=== PATIENT | male | born 1950 | race Caucasian/White ===

== ENCOUNTER → 2017-05-31 | Outpatient (CLI) | payer MEDICARE | END | disposition home or self-care (01) | LOC: RAD 10:15 | DX: J44.1 Chronic obstructive pulmonary disease with (acute) exacerbation (principal) ==

== ENCOUNTER → 2018-04-05 | Outpatient (CLI) | payer MEDICARE ==
[~2018-04-05] MED LIST: ANTIBIOTIC28.4 GM T; CEPHALEXIN500 M1 PO
== END | disposition home or self-care (01) ==
LOC: CT 09:00
DX: J44.1 Chronic obstructive pulmonary disease with (acute) exacerbation (principal); K74.60 Unspecified cirrhosis of liver; J98.11 Atelectasis

== ENCOUNTER → 2021-12-03 | Outpatient (CLI) | payer MEDICARE | END | disposition home or self-care (01) | LOC: RAD 16:47 | PROVIDERS: ATTEND Internal Medicine | DX: R91.8 Other nonspecific abnormal finding of lung field (principal); J44.9 Chronic obstructive pulmonary disease, unspecified ==

== ENCOUNTER → 2021-12-17 | Outpatient (CLI) | payer MEDICARE | END | disposition home or self-care (01) | LOC: CT 10:24 | PROVIDERS: ATTEND Internal Medicine | DX: R91.8 Other nonspecific abnormal finding of lung field (principal); K74.60 Unspecified cirrhosis of liver; R18.8 Other ascites ==

== ENCOUNTER → 2021-12-30 | Outpatient (CLI) | payer MEDICARE | END | disposition home or self-care (01) | LOC: CT 09:40 | PROVIDERS: ATTEND Internal Medicine | DX: K80.20 Calculus of gallbladder without cholecystitis without obstruction (principal); R16.1 Splenomegaly, not elsewhere classified; K44.9 Diaphragmatic hernia without obstruction or gangrene; K40.20 Bilateral inguinal hernia, without obstruction or gangrene, not specified as recurrent; R91.8 Other nonspecific abnormal finding of lung field; E27.8 Other specified disorders of adrenal gland; R18.8 Other ascites ==

== ENCOUNTER 2022-01-09 14:06 | Inpatient (IN) | payer MEDICARE ==
[~2022-01-09] VITALS: Ht 172.7 cm; Wt 81.3 kg
[2022-01-09] VITALS (9 sets, daily range): BP systolic 108–152; BP diastolic 64–94
[2022-01-09 14:53] LABS: BASO # 0.1 10*3/uL (0.0-0.1); BASO % 0.4 % (0.0-1.0); EOS # 0.1 10*3/uL (0.0-0.4); EOS % 0.7 % (1.0-4.0); HEMATOCRIT 41.5 % (42.0-52.0); LYMPH # 1.1 10*3/uL (1.3-4.4); LYMPH % 9.6 % (27.0-41.0); MEAN CELL VOLUME 88.7 fl (80.0-94.0); MEAN CORPUSCULAR HGB 28.8 pg (27.0-31.0); MEAN CORPUSCULAR HGB CONC 32.5 g/dl (33.0-37.0); MEAN PLATELET VOLUME 10.4 fl (9.6-12.3); MONO # 1.2 10*3/uL (0.1-1.0); NEUT # 9.2 10*3/uL (2.3-7.9); NEUT % 78.7 % (47.0-73.0); PLATELET COUNT AUTOMATED 117 10*3/uL (130-400); RED BLOOD COUNT 4.68 10*6/uL (4.50-5.90); RED CELL DISTRI WIDTH 18.3 % (0-14.5); WHITE BLOOD COUNT 11.6 10*3/uL (4.8-10.8)
[2022-01-09 15:03] LABS: INTERNATIONAL NORM RATIO 1.7 (2.0-3.5)
[2022-01-09 15:07] LABS: CREATININE 2.26 mg/dL (0.70-1.30); POTASSIUM 3.9 mmol/L (3.5-5.1); TOTAL PROTEIN 6.1 gm/dL (6.4-8.2)
[2022-01-09 16:13] LABS: BILIRUBIN 1+ (Negative); BLOOD Negative (Negative); CLARITY Clear (Clear); COLOR Dark Yellow (Yellow); GLUCOSE Negative (Negative); KETONE Trace (Negative); LEUKO ESTERASE Negative (Negative); NITRITE Negative (Negative); PH 5.5 (4.5-8.0)
[2022-01-09 16:22] LABS: MUCOUS 1+
[2022-01-09] MEDS ORDERED: AMBIEN5 MG PO (16:30)
[2022-01-09] MEDS ORDERED: BUPRENORPHINE-1 EAC1 SL (16:32)
[2022-01-09] MEDS ORDERED: LASIX40 MG PO (16:33)
[2022-01-09] MEDS ORDERED: KLOR-CON M1010 ME1 PO (16:33)
[2022-01-09 18:11] LABS: URINE AMPHETAMINES < 1000 (1000ng/ml); URINE BARBITURATES < 200 (200ng/ml); URINE BENZODIAZEPINES > 200 (200ng/ml); URINE CANNABINOIDS (THC) < 50 (50ng/ml); URINE COCAINE < 300 (300ng/ml); URINE METHADONE < 300 (300ng/ml); URINE OPIATES < 300 (300ng/ml)
[2022-01-09 18:15] LABS: URINE PHENCYCLIDINE < 25 (25ng/ml)
[2022-01-09 23:38] LABS: ACETAMINOPHEN (TYLENOL) < 5.0 ug/ml (10-30); ETHYL ALCOHOL < 3.0 mg/dl (<3)
[2022-01-10] VITALS: BP 143/75
[2022-01-10 04:15] VITALS: BP 94/58
[2022-01-10 05:37] LABS: CREATININE 1.84 mg/dL (0.70-1.30); POTASSIUM 4.6 mmol/L (3.5-5.1); TOTAL PROTEIN 5.9 gm/dL (6.4-8.2)
[2022-01-10 06:20] LABS: FREE T4 1.36 ng/dl (0.76-1.46)
[2022-01-10 06:24] LABS: THYROID STIM HORMONE (HS) 1.67 uIU/ml (0.358-4.75)
[2022-01-10 06:28] LABS: HEMATOCRIT 41.4 % (42.0-52.0); MEAN CELL VOLUME 90.4 fl (80.0-94.0); MEAN CORPUSCULAR HGB 28.6 pg (27.0-31.0); MEAN CORPUSCULAR HGB CONC 31.6 g/dl (33.0-37.0); MEAN PLATELET VOLUME 11.2 fl (9.6-12.3); NUCLEATED RED BLOOD CELL 0.2 % (0.0-0.0); PLATELET COUNT AUTOMATED 138 10*3/uL (130-400); RED BLOOD COUNT 4.58 10*6/uL (4.50-5.90); RED CELL DISTRI WIDTH 19.1 % (0-14.5); WHITE BLOOD COUNT 14.7 10*3/uL (4.8-10.8)
[2022-01-10 06:35] LABS: MANUAL DIFF REFLEX YES
[2022-01-10 06:36] LABS: ACT PARTIAL THROMBO TIME 31.6 SECONDS (20.0-32.1); INTERNATIONAL NORM RATIO 1.8 (2.0-3.5)
[2022-01-10 07:05] LABS: TOTAL CELLS COUNTED 100 #CELLS
[2022-01-10 07:06] LABS: BURR CELLS MODERATE; PLATELET SUFFICIENCY NORMAL (NORMAL); POLYCHROMASIA SLIGHT
[2022-01-10 08:00] VITALS: BP 119/88
[2022-01-10 12:00] VITALS: BP 112/80
[2022-01-10 16:00] VITALS: BP 102/70
[2022-01-10 20:00] VITALS: BP 108/72
[2022-01-11] VITALS: BP 128/95
[2022-01-11 08:00] VITALS: BP 132/92
[2022-01-11 12:00] VITALS: BP 133/86
[2022-01-11 16:00] VITALS: BP 144/88
== END 2022-01-11 18:29 | disposition hospice, inpatient (51) | DRG 917 ==
LOC: ED 14:06 → EDHOLD 18:39 → 5E 18:39
PROVIDERS: Emergency Medicine; Internal Medicine; ADMIT Internal Medicine; ATTEND Internal Medicine
DX: T42.4X1A Poisoning by benzodiazepines, accidental (unintentional), initial encounter (principal); G93.41 Metabolic encephalopathy; N17.0 Acute kidney failure with tubular necrosis; E43 Unspecified severe protein-calorie malnutrition; R65.11 Systemic inflammatory response syndrome (SIRS) of non-infectious origin with acute organ dysfunction; C78.01 Secondary malignant neoplasm of right lung; E87.2 Acidosis; C22.8 Malignant neoplasm of liver, primary, unspecified as to type; D68.59 Other primary thrombophilia; T50.905A Adverse effect of unspecified drugs, medicaments and biological substances, initial encounter; E83.41 Hypermagnesemia; K74.60 Unspecified cirrhosis of liver; D32.9 Benign neoplasm of meninges, unspecified; D64.9 Anemia, unspecified; F32.A Depression, unspecified; D69.6 Thrombocytopenia, unspecified; R73.9 Hyperglycemia, unspecified; E80.6 Other disorders of bilirubin metabolism; G47.00 Insomnia, unspecified; Y92.89 Other specified places as the place of occurrence of the external cause; Z79.899 Other long term (current) drug therapy; Z51.5 Encounter for palliative care; Z68.27 Body mass index [BMI] 27.0-27.9, adult

== ENCOUNTER 2022-01-11 18:41 | Inpatient (IN) | payer OTHER, MEDICARE ==
[~2022-01-11] VITALS: Ht 172.7 cm; Wt 81.2 kg
[~2022-01-11 18:41] MED LIST changes: +AMBIEN5 MG PO; +BUPRENORPHINE-1 EAC1 SL; +KLOR-CON M1010 ME1 PO; +LASIX40 MG PO
[2022-01-11 20:00] VITALS: BP 108/80
== END 2022-01-12 09:21 | DRG 435 ==
LOC: 5E 18:41
PROVIDERS: ADMIT Student in an Organized Health Care Education/Training Program; ATTEND Student in an Organized Health Care Education/Training Program
DX: C22.8 Malignant neoplasm of liver, primary, unspecified as to type (principal); G93.41 Metabolic encephalopathy; N17.0 Acute kidney failure with tubular necrosis; E43 Unspecified severe protein-calorie malnutrition; R65.11 Systemic inflammatory response syndrome (SIRS) of non-infectious origin with acute organ dysfunction; E87.2 Acidosis; D68.59 Other primary thrombophilia; T50.905A Adverse effect of unspecified drugs, medicaments and biological substances, initial encounter; Z66 Do not resuscitate; D69.6 Thrombocytopenia, unspecified; Z51.5 Encounter for palliative care; D64.9 Anemia, unspecified; R73.9 Hyperglycemia, unspecified; E83.41 Hypermagnesemia; E80.6 Other disorders of bilirubin metabolism; D32.9 Benign neoplasm of meninges, unspecified; R74.01 Elevation of levels of liver transaminase levels; K11.6 Mucocele of salivary gland; Y92.89 Other specified places as the place of occurrence of the external cause; Z68.27 Body mass index [BMI] 27.0-27.9, adult